=== PATIENT | male | born 1975 | race Two or more races ===

== ENCOUNTER 2016-12-16 04:16 | Emergency (ER) | payer BC, MEDICAID ==
[~2016-12-16] VITALS: Ht 177.8 cm; Wt 82.6 kg
[~2016-12-16 04:16] MED LIST: FLAX SEED OIL1000 MG PO; MULTIVITAMINS1 EAC2 ORAL; NORCO 5-325 TA1 EAC1 ORAL
--- NOTE | 2016-12-16 04:44 | Emergency Room Report ---
History of Present Illness General Chief Complaint: General Complaint Source: Patient Present Illness HPI Patient is a 41-year-old male who presents after increased dizziness as well as chills. Patient had prior history of recent surgery. He had been taking Augmentin. The patient reported having a nasal procedure as well as a chin lift. He denies any neck pain. He denies severe headache. He reported having generalized malaise. He reports taking a [place]. He states he has had undetectable viral loads. Allergies: Coded Allergies: No Known Allergies (Unverified , 01/31/14) Patient History Past Medical History: see triage record Reviewed Nursing Documentation: PMH: Agreed, PSxH: Agreed Nursing Documentation-PMH Past Medical History: No Stated History Hx Cardiac Problems: Yes Hx Cancer: No Hx Gastrointestinal Problems: No Hx Neurological Problems: No Review of Systems All Other Systems: negative except mentioned in HPI Physical Exam Vital Signs Date Time Temp Pulse Resp B/P (MAP) Pulse Ox O2 Delivery O2 Flow Rate FiO2 12/16/16 04:20 98.8 80 18 114/70 100 Sp02 EP Interpretation: reviewed, normal General Appearance: normal inspection, well appearing, no apparent distress, alert, GCS 15 Head: atraumatic ENT: normal ENT inspection, hearing grossly normal, normal voice, other - healing surgical wound minimal swelling, no discharge Neck: normal inspection, full range of motion, supple, no bony tend Respiratory: normal inspection, lungs clear, normal breath sounds, no respiratory distress, no retraction, no wheezing Cardiovascular #1: regular rate, rhythm, no edema Gastrointestinal: normal inspection, normal bowel sounds, non tender, soft, no guarding, no hernia Genitourinary: no CVA tenderness Musculoskeletal: normal inspection, back normal, normal range of motion Neurologic: normal inspection, alert, responsive, speech normal Psychiatric: normal inspection, judgement/insight normal, mood/affect normal Skin: normal inspection, normal color, no rash Medical Decision Making Diagnostic Impression: Primary Impression: Viral infection ER Course Patient presented for fever and chills. Differential diagnosis included was not limited to sepsis, meningitis, adrenal tumor, medication reaction among others.Because of complexity of patient's case laboratory testing and imaging studies were ordered.Laboratory studies were unremarkable. Chest x-ray one view interpreted by me showed normal lung carl normal cardiac size no evident effusion Labs Test 12/16/16 04:55 12/16/16 05:20 White Blood Count 8.8 K/UL (4.8-10.8) Red Blood Count 5.44 M/UL (4.70-6.10) Hemoglobin 17.1 G/DL (14.2-18.0) Hematocrit 49.3 % (42.0-52.0) Mean Corpuscular Volume 91 FL (80-99) Mean Corpuscular Hemoglobin 31.3 PG (27.0-31.0) Mean Corpuscular Hemoglobin Concent 34.6 G/DL (32.0-36.0) Red Cell Distribution Width 11.2 % (11.6-14.8) Platelet Count 246 K/UL (150-450) Mean Platelet Volume 6.9 FL (6.5-10.1) Neutrophils (%) (Auto) 71.7 % (45.0-75.0) Lymphocytes (%) (Auto) 16.2 % (20.0-45.0) Monocytes (%) (Auto) 9.5 % (1.0-10.0) Eosinophils (%) (Auto) 1.3 % (0.0-3.0) Basophils (%) (Auto) 1.2 % (0.0-2.0) Sodium Level 139 mEQ/L (135-145) Potassium Level 4.0 mEQ/L (3.4-4.9) Chloride Level 101 mEQ/L (98-107) Carbon Dioxide Level 27 mEQ/L (20-30) Anion Gap 11 (5-15) Blood Urea Nitrogen 11 mg/dL (7-23) Creatinine 1.1 mg/dL (0.7-1.2) Estimat Glomerular Filtration Rate > 60 mL/min (>60) Glucose Level 116 mg/dL (74-106) Lactic Acid Level 1.30 mmol/L (0.66-2.22) Calcium Level 9.0 mg/dL (8.6-10.2) Total Bilirubin 0.4 mg/dL (0.0-1.2) Aspartate Amino Transf (AST/SGOT) 34 U/L (5-40) Alanine Aminotransferase (ALT/SGPT) 35 U/L (3-41) Alkaline Phosphatase 67 U/L (40-129) Total Creatine Kinase 100 U/L (38-174) Total Protein 7.2 g/dL (6.6-8.7) Albumin 4.1 g/dL (3.5-5.2) Globulin 3.1 g/dL Albumin/Globulin Ratio 1.3 (1.0-2.7) Chest X-Ray Diagnostic Results Chest X-Ray Diagnostic Results : Chest X-Ray Ordered: Yes # of Views/Limited/Complete: 1 View Indication: Other - dizziness EP Interpretation: Yes Interpretation: no consolidation, no effusion, no pneumothorax, no acute cardiopulmonary disease Impression: No acute disease Last Vital Signs Date Time Temp Pulse Resp B/P (MAP) Pulse Ox O2 Delivery O2 Flow Rate FiO2 12/16/16 04:20 98.8 80 18 114/70 100 Status: improved Disposition: HOME, SELF-CARE Condition: Stable Neo Butt Dec 16, 2016 04:44
[2016-12-16 04:55] VITALS: BP 110/72
[2016-12-16 05:08] VITALS: BP_SYST 114; BP_SYST 125; BP_DIAS 73; BP_DIAS 78
[2016-12-16 05:22] LABS: BASOPHILS % (AUTO) 1.2 % (0.0-2.0); EOSINOPHILS % (AUTO) 1.3 % (0.0-3.0); LYMPHOCYTES % (AUTO) 16.2 % (20.0-45.0); MEAN CORPUSCULAR HEMOGLOBIN 31.3 PG (27.0-31.0); MEAN CORPUSCULAR HGB CONC 34.6 G/DL (32.0-36.0); MEAN CORPUSCULAR VOLUME 91 FL (80-99); MEAN PLATELET VOLUME 6.9 FL (6.5-10.1); MONOCYTES % (AUTO) 9.5 % (1.0-10.0); NEUTROPHILS % (AUTO) 71.7 % (45.0-75.0); PLATELET COUNT 246 K/UL (150-450); RED BLOOD COUNT 5.44 M/UL (4.70-6.10); RED CELL DISTRIBUTION WIDTH 11.2 % (11.6-14.8); WHITE BLOOD COUNT 8.8 K/UL (4.8-10.8)
[2016-12-16 05:32] LABS: ALANINE AMINOTRANSFERASE 35 U/L (3-41); ALBUMIN/GLOBULIN RATIO 1.3 (1.0-2.7); ANION GAP 11 (5-15); ASPARTATE AMINO TRANSFERASE 34 U/L (5-40); CARBON DIOXIDE 27 mEQ/L (20-30); CHLORIDE 101 mEQ/L (98-107); CREATININE 1.1 mg/dL (0.7-1.2); GLOMERULAR FILTRATION RATE > 60 mL/min (>60); HEMOLYSIS 20; SODIUM 139 mEQ/L (135-145); TOTAL PROTEIN 7.2 g/dL (6.6-8.7)
[2016-12-16 05:36] LABS: APPEARANCE,URINE CLEAR; KETONES,URINE NEGATIVE (NEGATIVE); LEUKOCYTE ESTERASE ,URINE 1+ (NEGATIVE); NITRITE,URINE NEGATIVE (NEGATIVE); PH,URINE 8 (4.5-8.0); PROTEIN,URINE NEGATIVE (NEGATIVE); UROBILINOGEN,URINE NORMAL MG/DL (0.0-1.0)
[2016-12-16 05:42] LABS: CKMB < 1.5 ng/mL (< 6.7)
[2016-12-16 05:51] LABS: BACTERIA,URINE FEW /HPF; RBC,URINE 0-2 /HPF (0 - 0); SQUAMOUS EPITHELIAL CELL,UR FEW /LPF (NONE/OCC); WBC,URINE 0-2 /HPF (0 - 0)
[2016-12-16 05:53] VITALS: BP 116/65
[2016-12-16 06:20] VITALS: BP 116/65
--- NOTE | 2016-12-16 10:04 | Diagnostic Imaging Report ---
Indication: Shortness of breath Technique: One view of the chest Comparison: none Findings: Lungs and pleural spaces are clear. Heart size is normal Impression: No acute process
== END 2016-12-16 06:25 | disposition home or self-care (01) ==
LOC: EMR 04:37
DX: B34.9 Viral infection, unspecified (principal); R42 Dizziness and giddiness; Z98.890 Other specified postprocedural states
CPT/HCPCS: 36415; 71010; 80053; 81003; 82550; 82553; 83605; 85025; 87040; 96361; 96374; 99284

== ENCOUNTER 2018-04-06 19:58 | Emergency (ER) | payer MEDICAID ==
[~2018-04-06] VITALS: Ht 175.3 cm; Wt 81.6 kg
[2018-04-06] MEDS ORDERED: ATORVASTATIN CA20 MG ORAL (20:08)
[2018-04-06] MEDS ORDERED: TRUVADA1 TAB ORAL (20:08)
[2018-04-06 20:15] VITALS: BP 118/73
--- NOTE | 2018-04-06 20:15 | NUR ---
ED Nurse Note: pt came in due to feeling of fainting x 2 days. denies actual fainting. pt stated that he might be stress, pt stated he feel before he feel to faint that his eyes become blurred and goes away. denies history of trauma. denies history of epilepsy or seizure episode. seen by ermd. will continue to monitor.
--- NOTE | 2018-04-06 20:42 | NUR ---
ED Nurse Note: pt went to ct with tech
--- NOTE | 2018-04-06 20:47 | NUR ---
ED Nurse Note: pt went back from ct with tech
[2018-04-06] MEDS ORDERED: LORazepam 0.5mg tab ONE (21:22)
[2018-04-06] MEDS ORDERED: ALPRAZOLAM0.25 MG ORAL (21:25)
--- NOTE | 2018-04-06 21:25 | NUR ---
ED Nurse Note: oral atian given to pt as per ermd order and pt able to tolerate. will continue to monitor.
[2018-04-06 21:30] VITALS: BP 125/75
[2018-04-06] MEDS ORDERED: LORazepam 0.5mg tab ORAL ONE (21:30)
--- NOTE | 2018-04-06 21:30 | NUR ---
ED Nurse Note: ermd on bedside discussing discharge plan with the pt. pt was cleared to discharge. pt stated he feels better now. discharge instruction and prescription given and pt able to verbalize understanding. id band removed. vss. pt left the ed with all belongings.
--- NOTE | 2018-04-07 15:52 | Diagnostic Imaging Report ---
EXAM: CT Head Without Intravenous Contrast CLINICAL HISTORY: H/A TECHNIQUE: Axial computed tomography images of the head/brain without intravenous contrast. CTDI is 0.15, 70.38 mGy and DLP is 1406 mGy-cm. One or more of the following dose reduction techniques were used: automated exposure control, adjustment of the mA and/or kV according to patient size, use of iterative reconstruction technique. COMPARISON: No relevant prior studies available. FINDINGS: Brain: Unremarkable. No hemorrhage. No significant white matter disease. No edema. Ventricles: Unremarkable. No ventriculomegaly. Bones/joints: Question of a fracture of the right nasal bone which is partially imaged. It is unclear if this is acute or chronic. Soft tissues: Unremarkable. Sinuses: Unremarkable as visualized. No acute sinusitis. Mastoid air cells: Unremarkable as visualized. No mastoid effusion. IMPRESSION: Question of a fracture of the right nasal bone which is partially imaged. It is unclear if this is acute or chronic. No definite CT evidence for acute intracranial abnormality.
--- NOTE | 2018-04-09 06:51 | Emergency Room Report ---
History of Present Illness General Chief Complaint: General Complaint Source: Patient Present Illness HPI 42-year-old male presents ED for evaluation. Patient complaining of throbbing sensation behind the eyes which causes him to "nearly pass out". States that the episodes cause some intermittent blurry vision. Patient denies LOC. States his been going on for 2 days. Denies any headache. Denies any neck stiffness. Denies any fevers or chills. 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 States he's been unable to sleep for the last few days. Denies alcohol or drug use. No other aggravating relieving factors. Denies any other associated symptoms Allergies: Coded Allergies: No Known Allergies (Unverified , 01/31/14) Patient History Past Medical History: none Past Surgical History: none Pertinent Family History: none Social History: Denies: smoking, alcohol use, drug use Immunizations: UTD Reviewed Nursing Documentation: PMH: Agreed; PSxH: Agreed Nursing Documentation-PMH Past Medical History: No History, Except For Hx Cardiac Problems: Yes - high cholesterol Hx Cancer: No Hx Gastrointestinal Problems: No Hx Neurological Problems: No Review of Systems All Other Systems: negative except mentioned in HPI Physical Exam Vital Signs Date Time Temp Pulse Resp B/P (MAP) Pulse Ox O2 Delivery O2 Flow Rate FiO2 04/06/18 20:04 97.7 87 16 118/73 98 Room Air Sp02 EP Interpretation: reviewed, normal General Appearance: no apparent distress, alert, GCS 15, non-toxic Head: normocephalic, atraumatic Eyes: bilateral eye normal inspection, bilateral eye PERRL ENT: hearing grossly normal, normal pharynx, no angioedema, normal voice Neck: full range of motion, supple/symm/no masses Respiratory: chest non-tender, lungs clear, normal breath sounds, speaking full sentences Cardiovascular #1: regular rate, rhythm, no edema Cardiovascular #2: 2+ carotid (R), 2+ carotid (L), 2+ radial (R), 2+ radial (L) , 2+ dorsalis pedis (R), 2+ dorsalis pedis (L) Gastrointestinal: normal bowel sounds, non tender, soft, non-distended, no guarding, no rebound Rectal: deferred Genitourinary: normal inspection, no CVA tenderness Musculoskeletal: back normal, gait/station normal, normal range of motion, non- tender Neurologic: alert, oriented x3, responsive, 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, motor strength/tone normal, sensory intact, cerebellar normal, normal gait, speech normal Psychiatric: judgement/insight normal, memory normal, anxious Reflexes: 3+ bicep (R), 3+ bicep (L), 3+ tricep (R), 3+ tricep (L), 3+ knee (R) , 3+ knee (L) Skin: normal color, no rash, warm/dry, well hydrated Lymphatic: no adenopathy Medical Decision Making Diagnostic Impression: Primary Impression: Anxiety Additional Impression: Headache Qualified Codes: R51 - Headache ER Course Hospital Course 42 yo M presents to ED c/o intermittent blurry vision, unable to sleep Differential diagnoses include: CVA/TIA, anxiety, insomnia Clinical course Patient placed on stretcher. on classroom monitor. After initial history, physical exam reveals male in no acute distress. Extraocular movements intact. Visual acuity intact. Cranial nerves II through XII intact. No nuchal rigidity I ordered CT head CT brain - no acute process Discussed findings with patient. Symptoms likely related to anxiety/lack of sleep. Patient then admits that his PMD prescribed and gabapentin to help him sleep, but states it is not helping. I believe anxiety state major component of his symptoms at this time. Given Ativan here. We'll discharge on short course of Xanax Safe for discharge or close outpatient follow-up. Patient states his PMD I. I feel this is a highly complex case requiring extensive working including EKG/Rhythm strip, Xray/CT/US, Blood/urine lab work, repeat exams while in ED, and administration of strong opiates/narcotics for pain control, admission to hospital or close patient follow up. Diagnosis - anxiety, headache Stable and discharged to home with Rx Xanax. Followup with PMD. Return to ED if symptoms recur or worse Last Vital Signs Date Time Temp Pulse Resp B/P (MAP) Pulse Ox O2 Delivery O2 Flow Rate FiO2 04/06/18 21:30 98.0 78 14 125/75 99 Room Air Status: improved Disposition: HOME, SELF-CARE Condition: Stable Scripts Alprazolam* (XANAX*) 0.25 Mg Tablet 0.25 MG ORAL TID PRN for For Anxiety, #10 TAB Prov: Ancelmo Noriega MD 04/06/18 Patient Instructions: Panic Attacks, [id number] Ancelmo Noriega MD Apr 09, 2018 06:51
== END 2018-04-06 21:30 | disposition home or self-care (01) ==
LOC: EMR 20:23
DX: F41.9 Anxiety disorder, unspecified (principal); R51 Headache; E78.00 Pure hypercholesterolemia, unspecified
CPT/HCPCS: 70450; 99282